=== PATIENT | male | born 1950 | race Caucasian/White ===

== ENCOUNTER → 2017-03-11 | Outpatient (CLI) | payer MEDICARE, OTHER ==
[2017-03-11 11:33] LABS: CH 27.5; CHCM 32.7; HCT 46.9 % (39.0-53.0); HDW 2.61; HGB 15.6 gm/dL (13.0-17.5); MCH 28.1 pg (25.0-35.0); MCHC 33.2 g/dL (31.0-37.0); MCV 84.6 fL (80.0-100.0); RBC 5.54 m/uL (4.30-5.90); RDW 14.6 % (11.5-15.5)
[2017-03-11 11:53] LABS: ALT 30 U/L (21-72); AST 17 U/L (17-59); Alkaline Phosphatase 105 U/L (38-126); Anion Gap 11 mmol/L; Blood Urea Nitrogen 15 mg/dL (9-20); Calcium 9.8 mg/dL (8.4-10.2); Carbon Dioxide 27 mmol/L (22-30); Chloride 103 mmol/L (98-107); Cholesterol 173 mg/dL (<200); Glucose 103 mg/dL (74-99); HDL Cholesterol 45 mg/dL (40-60); Non-African American GFR(MDRD) >60 (>60 ml/min/1.73 sqM); Potassium 4.6 mmol/L (3.5-5.1); Sodium 141 mmol/L (137-145); Total Bilirubin 1.1 mg/dL (0.2-1.3); Total Protein 6.9 g/dL (6.3-8.2)
[2017-03-11 12:21] LABS: Prostate Specific Antigen 0.91 ng/mL (0.00-4.00)
[2017-03-11 13:08] LABS: Erythrocyte Sedimentation Rate 5 mm/hr (0-15)
== END | disposition home or self-care (01) ==
LOC: LABWHC1 10:49
PROVIDERS: ATTEND Internal Medicine
DX: N40.0 Benign prostatic hyperplasia without lower urinary tract symptoms (principal)
CPT/HCPCS: 36415; 80053; 80061; 84153; 84443; 85027; 85652

== ENCOUNTER → 2018-11-09 | Outpatient (CLI) | payer MEDICARE, OTHER ==
[2018-11-09 10:06] LABS: HCT 48.4 % (39.0-53.0); HGB 15.4 gm/dL (13.0-17.5); MCH 26.1 pg (25.0-35.0); MCHC 31.9 g/dL (31.0-37.0); MCV 81.8 fL (80.0-100.0); Mean Platelet Volume 7.1; Platelet Count 273 k/uL (150-450); RBC 5.91 m/uL (4.30-5.90); RDW 15.3 % (11.5-15.5); WBC 7.3 k/uL (3.8-10.6)
[2018-11-09 17:50] LABS: Albumin 4.4 g/dL (3.80-4.90); Anion Gap 6.8 mmol/L (4.00-12.00); Calcium 9.7 mg/dL (8.7-10.3); Carbon Dioxide 27.2 mmol/L (21.6-31.8); Globulin 2.2 g/dL (1.6-3.3); Total Protein 6.6 g/dL (6.2-8.2)
== END ==
LOC: LABWHC1 08:49
PROVIDERS: ATTEND Internal Medicine
DX: Z00.00 Encounter for general adult medical examination without abnormal findings (principal); G80.9 Cerebral palsy, unspecified; K21.9 Gastro-esophageal reflux disease without esophagitis; R39.12 Poor urinary stream; R53.83 Other fatigue
CPT/HCPCS: 36415; 80053; 84153; 84443; 85027

== ENCOUNTER 2019-11-05 16:11 | Emergency (ER) | payer MEDICARE, OTHER ==
[2019-11-05 16:17] VITALS: BP 179/79; PULSE 81; RESP 20
--- NOTE | 2019-11-05 17:10 | XR ---
Left foot HISTORY: Swelling 3 views of the right foot There is a proximal fracture of the proximal phalanx of the fifth digit of the left foot which extend s into the metatarsophalangeal joint, there is displacement of approximately 2 to 3 mm. Distal third metatarsal fracture is present with minimal displacement. Lucency present distal second metatarsal al so consistent with fracture with minimal displacement. There is associated soft tissue swelling prese nt. IMPRESSION: Multiple digit fractures within the foot. Correlate for appropriate history.
--- NOTE | 2019-11-05 17:17 | ED ---
Lower Extremity Injury HPI - General Chief Complaint: Extremity Injury, Lower Stated Complaint: Left foot swollen Time Seen by Provider: 11/05/19 16:20 Source: RN notes reviewed, old records reviewed, Caregiver Mode of arrival: wheelchair Limitations: altered mental status, physical limitation - History of Present Illness Initial Comments: This is a 69-year-old male DF for evaluation possessive for evaluation of unknown injury poor historian history is obtained by patient's caregiver. The noted significant swelling and patient having inability to walk or bear weight on left foot today coming DF for evaluation. No known injury, significant swelling and edema and bruising of that left foot MD Complaint: foot injury (left) -: unknown Injury: Foot: Left Place: home Severity: moderate Severity scale (1-10): 7 Improves With: nothing Worsens With: nothing Context: direct blow Associated Symptoms: swelling, unable to bear weight - Related Data Allergies Allergy/AdvReac Type Severity Reaction Status Date / Time No Known Allergies Allergy Verified 11/05/19 16:16 Review of Systems ROS Statement: Those systems with pertinent positive or pertinent negative responses have been documented in the HPI. ROS Other: All systems not noted in ROS Statement are negative. Past Medical History Past Medical History: Seizure Disorder Additional Past Medical History / Comment(s): cerebral palsy History of Any Multi-Drug Resistant Organisms: None Reported Past Surgical History: No Surgical Hx Reported Past Psychological History: No Psychological Hx Reported Smoking Status: Never smoker Past Alcohol Use History: None Reported Past Drug Use History: None Reported General Exam - General Exam Comments Initial Comments: Left foot edema swelling and bruising Limitations: altered mental status, physical limitation General appearance: alert, in no apparent distress Head exam: Present: atraumatic, normocephalic, normal inspection Eye exam: Present: normal appearance, PERRL, EOMI. Absent: scleral icterus, conjunctival injection, periorbital swelling ENT exam: Present: normal exam, mucous membranes moist Neck exam: Present: normal inspection. Absent: tenderness, meningismus, lymphadenopathy Respiratory exam: Present: normal lung sounds bilaterally. Absent: respiratory distress, wheezes, rales, rhonchi, stridor Cardiovascular Exam: Present: regular rate, normal rhythm, normal heart sounds. Absent: systolic murmur, diastolic murmur, rubs, gallop, clicks GI/Abdominal exam: Present: soft, normal bowel sounds. Absent: distended, tenderness, guarding, rebound, rigid Extremities exam: Present: normal inspection, full ROM, normal capillary refill. Absent: tenderness, pedal edema, joint swelling, calf tenderness Left Foot/Toe exam: Present: tenderness, swelling, ecchymosis Back exam: Present: normal inspection Neurological exam: Present: alert, oriented X3, CN II-XII intact Psychiatric exam: Present: normal affect, normal mood Skin exam: Present: warm, dry, intact, normal color. Absent: rash Course Vital Signs 11/05/19 16:12 Pulse Rate 81 Respiratory 20 Rate Blood Pressure 179/79 O2 Sat by Pulse 100 Oximetry Procedures - Orthopedic Splinting/Casting Injury #1 Side: left Lower Extremity Injury Location: foot Lower Extremity Immobilizer: posterior splint Other Orthopedic Equipment: crutches Medical Decision Making - Medical Decision Making 7 female the ER with unknown injury of left foot patient doesn't multiple forefoot fractures, no significant displacement, patient made nonweightbearing placed in splint and can be discharged home - Radiology Data Radiology results: report reviewed (Left forefoot fracture multiple), image reviewed Disposition Clinical Impression: Fracture of left forefoot, Contusion of left foot Disposition: HOME SELF-CARE Condition: Good Instructions (If sedation given, give patient instructions): Foot Contusion (ED), Foot Fracture in Adults (ED) Is patient prescribed a controlled substance at d/c from ED?: No Referrals: Jay Cason MD [STAFF PHYSICIAN] - 1-2 days
== END 2019-11-05 17:42 | disposition home or self-care (01) ==
LOC: EC 16:11
DX: S92.332A Displaced fracture of third metatarsal bone, left foot, initial encounter for closed fracture (principal); S92.352A Displaced fracture of fifth metatarsal bone, left foot, initial encounter for closed fracture; R41.82 Altered mental status, unspecified; X58.XXXA Exposure to other specified factors, initial encounter; Y92.009 Unspecified place in unspecified non-institutional (private) residence as the place of occurrence of the external cause
CPT/HCPCS: 29515; 99284